=== PATIENT | male | born 1995 | race Asian ===

== ENCOUNTER 2022-07-10 19:19 | Emergency (ER) | payer BC ==
[~2022-07-10] VITALS: Ht 167.6 cm; Wt 63.5 kg
[2022-07-10] MEDS ORDERED: SODIUM CHLORIDE 0.9% 1000ML 1,000 ML IV SCH (19:45)
[2022-07-10] MEDS ORDERED: PROMETHAZINE 12.5MG/ NACL 0.9% 12.5 MG/50 ML BAG IV ONE (19:45)
[2022-07-10] MEDS ORDERED: SODIUM CHLORIDE 0.9% 1000ML 1,000 ML ONE (19:57)
[2022-07-10] MEDS ORDERED: PROMETHAZINE HCL (IM) 25 MG/ML VIAL IM ONE (19:58)
[2022-07-10] MEDS ORDERED: IOPAMIDOL 370 MG/ML 100 ML INFUS..BTL INJ ONE (20:11)
[2022-07-10] MEDS ORDERED: PHENERGAN SUPP25 MG RC ×2 (20:42→21:24)
[2022-07-10] MEDS ORDERED: CEFDINIR300 MG PO (21:24)
== END 2022-07-10 21:45 | disposition home or self-care (01) ==
LOC: FSED 19:28
DX: R10.12 Left upper quadrant pain (principal); R11.2 Nausea with vomiting, unspecified; Z87.19 Personal history of other diseases of the digestive system
CPT/HCPCS: 80053; 80076; 81003; 85025; 99283; J2550; J7030; Q9967